=== PATIENT | male | born 1960 | race Caucasian/White ===

== ENCOUNTER 2017-02-19 15:50 | Emergency (ER) | payer MEDICARE, OTHER ==
[2017-02-19 15:59] VITALS: BP 100/57; PULSE 109; BMI 29.8
--- NOTE | 2017-02-19 16:39 | PDOC ---
History of Present Illness - General Chief Complaint: Wound Stated Complaint: RT FOOT WOUND Time Seen by Provider: 02/19/17 16:36 History Source: Patient, Family (Daughter) - History of Present Illness Initial Comments: 02/19/17 16:37 Patient is a 57 year old male with history of DM, ESRD on dialysis, HTN, CHF and PVD presenting with his daughter to the ED at the direction of his pediatrist for evaluation and topical dressing of a lesion on the right foot. Patient has a history of amputations to the right foot with removal of his 2nd and 4th phalanges and the 5th metatarsal. Patient endorses several days of pain to the right foot and noticed a small skin defect. Denies trauma, bleeding and purulent discharge. Denies peripheral neuropathy. Denies fever, chills and SOB. Daughter claims patient has an appointment with his pediatrist , Dr. Brambila, on Friday. Patient completed dialysis this morning with normal labs according to the daughter. Past History - Past Medical History Allergies/Adverse Reactions: Allergies Allergy/AdvReac Type Severity Reaction Status Date / Time No Known Allergies Allergy Verified 05/16/16 10:57 Home Medications: Ambulatory Orders Aspirin [ASA -] 81 mg PO DAILY 01/10/15 Furosemide [Lasix -] 40 mg PO DAILY 01/10/15 Omeprazole [Prilosec (RX)] 20 mg PO DAILY 01/10/15 Simvastatin [Zocor -] 20 mg PO HS 01/10/15 Tamsulosin HCl [Flomax -] 0.8 mg PO DAILY 01/10/15 Tiotropium [place] [Spiriva] 1 inh PO DAILY 01/10/15 Glipizide [Glipizide ER] 5 mg PO BID 06/02/15 Amlodipine Besylate [Norvasc -] 5 mg PO DAILY 01/19/16 Lisinopril 10 mg PO DAILY 01/19/16 Sucroferric Oxyhydroxide [Velphoro] 500 mg PO DAILY 01/19/16 Anemia: Yes Asthma: No Cancer: No Cardiac Disorders: (PVD - recent Angiogram) CVA: No COPD: No CHF: Yes Dementia: No Diabetes: Yes Dialysis: Yes (M-W-F) GI Disorders: No Disorders: (ESRD - HD) HTN: Yes Hypercholesterolemia: Yes Liver Disease: No Seizures: No Thyroid Disease: No - Surgical History Abdominal Surgery: Yes (Left LE angiogram) Appendectomy: No Cardiac Surgery: No Cholecystectomy: No Lung Surgery: No Neurologic Surgery: No Orthopedic Surgery: No - Immunization History Immunization Up to Date: Yes - Psycho/Social/Smoking Cessation Hx Anxiety: No Suicidal Ideation: No Smoking History: Current some day smoker Have you smoked in the past 12 months: No Number of Cigarettes Smoked Daily: 4 If you are a former smoker, when did you quit?: 3 days ago (01/05/16) Information on smoking cessation initiated: No Hx Alcohol Use: No Drug/Substance Use Hx: No Substance Use Type: None Hx Substance Use Treatment: No Review of Systems - Review of Systems Able to Perform ROS?: Yes Is the patient limited Icelandic proficient: Yes Constitutional: No: Chills, Fever Respiratory: No: Shortness of Breath Cardiac (ROS): No: Chest Pain, Syncope ABD/GI: No: Other (Abdominal pain) : No: Dysuria Musculoskeletal: Yes: Other (pain and lesion to right foot without discharge. Denies neuropathy) *Physical Exam - Vital Signs Last Vital Signs Temp Pulse Resp BP Pulse Ox 99.2 F 109 H 20 100/57 95 02/19/17 15:56 02/19/17 15:56 02/19/17 15:56 02/19/17 15:56 02/19/17 15:56 - Physical Exam General Appearance: Yes: Nourished, Disheveled HEENT: positive: EOMI, TAMARA Respiratory/Chest: positive: Lungs Clear, Normal Breath Sounds. negative: Respiratory Distress Cardiovascular: positive: Regular Rhythm, Regular Rate. negative: Edema, JVD, Murmur Comments:: 02/19/17 20:03 Diminished (+1) left PT pulse and absent DP and PT pulses to the right LE. Both LE are warm and appear well perfused without pallor or cyanosis Gastrointestinal/Abdominal: positive: Distended (moderate). negative: Guarding , Rebound, Tenderness Extremity: positive: Other (loss of 2, 4 phalanges of right foot, large area (5 cm x 5 cm) of dark callused skin over the 5th metatarsal with a thin 1 cm central epidermal defect, dry around edges, no erythema or edema, no discharge) . negative: Coldness Integumentary: positive: Normal Color, Dry, Warm Medical Decision Making - Medical Decision Making 57 year old diabetic male with history of amputations to the right foot presenting with a small cutaneous defect and pain to the mid lateral aspect of the right foot. Ddx is most concerning for an infection in the setting of diabetes with with possible osteomyelitis. Plan to get xray, CBC, CMP, Coags, ESR, CRP Conider Blood cultures 02/19/17 16:38 After being seen by both Dr. Rosario and myself the patient declined any additional testing and stated he did not want to stay. I explained to both the patient and his daughter that the risks of leaving included osteomyelitis, sepsis, loss of limb and possible . They both acknowledged their understanding and expressed their desire to leave AMA. They stated that they would go see the patients primary care physician in the morning. Daughter, who is the medical proxy for her father, signed the AMA form and then patient and daughter preceded to leave the ED. *DC/Admit/Observation/Transfer Diagnosis at time of Disposition: Foot ulcer - Discharge Dispostion Disposition: AGAINST MEDICAL ADVICE Condition at time of disposition: Stable - Referrals Referrals: foot surgeon, as needed [Other] - Patient Instructions Additional Instructions: You are leaving against medical advice. You are at risk of developing osteomylitis, sepsis, loss of limb and . Please follow up with a foot surgeon immediately. Return to ED or dial 911 immediately if you develop fever. - Attestations Physician Attestion: 02/19/17 18:46 I, Dr. Florin Gonzlaez, attest that this document has been prepared under my direction and personally reviewed by me in its entirety. I further attest, that it accurately reflects all work, treatment, procedures and medical decision -making performed by me.
[2017-02-19 17:19] VITALS: TEMP 97.7
--- NOTE | 2017-02-19 19:13 | PDOC ---
Attending Attestation - Resident Resident Name: Florin Gonzalez - ED Attending Attestation I have performed the following: I have examined & evaluated the patient, The case was reviewed & discussed with the resident, I agree w/resident's findings & plan, Exceptions are as noted - HPI HPI: 02/19/17 19:06 Patient is a 57-year-old male with history of end-stage renal disease on hemodialysis, multiple toe amputations in the past presents with a cutaneous defect to the lateral aspect of the right foot with surrounding callus for the past several days. Patient denies fevers/chills/nausea/vomiting/pain. - Physicial Exam PE: 02/19/17 19:07 Patient is awake and alert, afebrile, nontoxic appearing. There is a 1 cm linear defects to the lateral aspect of the right midfoot over the base of the fifth metatarsal with surrounding callus. Dorsalis pedis and tibialis posterior not palpable. There is amputation of second and fourth toes. Right foot is warm to touch with a normal cap refill. Popliteal artery is +1 on the right. - Medical Decision Making 02/19/17 19:14 Patient is a 57-year-old male with history of diabetes, end-stage renal disease on hemodialysis presents with a cutaneous defect to the lateral aspect of the right midfoot with surrounding callus. Patient refused any further evaluation and wished to follow-up with his foot surgeon. Patient advised of the risk of osteomyelitis and further lung loss. Patient and his daughter expressed understanding and signed out AMA.
--- NOTE | 2017-02-25 13:35 | EKG ---
Test Reason : Blood Pressure : / mmHG Vent. Rate : 090 BPM Atrial Rate : 090 BPM P-R Int : 184 ms QRS Dur : 080 ms QT Int : 338 ms P-R-T Axes : 063 060 041 degrees QTc Int : 413 ms NORMAL SINUS RHYTHM POSSIBLE LEFT ATRIAL ENLARGEMENT NONSPECIFIC ST-T ABNORMALITIES IN II III aVF V4-V6 ABNORMAL ECG WHEN COMPARED WITH ECG OF 19-JAN-2016 16:15, REPEAT EKG IF CLINICALLY INDICATED Confirmed by RAFAEL ARCE MD ([id number]) on 02/25/2017 1:35:27 PM Referred By: Confirmed By:RAFAEL ARCE MD
== END 2017-02-19 18:40 | disposition left against medical advice (07) ==
LOC: JER 15:50
DX: E11.621 Type 2 diabetes mellitus with foot ulcer (principal); L97.411 Non-pressure chronic ulcer of right heel and midfoot limited to breakdown of skin; Z79.84 Long term (current) use of oral hypoglycemic drugs; I13.2 Hypertensive heart and chronic kidney disease with heart failure and with stage 5 chronic kidney disease, or end stage renal disease; E11.22 Type 2 diabetes mellitus with diabetic chronic kidney disease; N18.6 End stage renal disease; I50.9 Heart failure, unspecified; N17.8 Other acute kidney failure; Z99.2 Dependence on renal dialysis; E78.00 Pure hypercholesterolemia, unspecified; Z89.421 Acquired absence of other right toe(s)
CPT/HCPCS: 93005; 93010; 99281-25

== ENCOUNTER 2020-02-27 01:22 | Inpatient (IN) | payer OTHER ==
[2020-02-27 01:38] VITALS: BMI 29.0
[2020-02-27] MEDS ORDERED: ACETAMINOPHEN 1000 MG/100 ML VIAL (NON FORMULARY) IVPB ONE (02:40)
[2020-02-27] MEDS ORDERED: AZITHROMYCIN IVPB 500 MG in DEXTROSE 5%-WATER - 250 ML IVPB ONE (02:40)
[2020-02-27] MEDS ORDERED: DEXAMETHASONE SOD PHOSPHATE 10 MG/1 ML VIAL IVPUSH ONE (02:40)
--- NOTE | 2020-02-27 02:40 | PDOC ---
Attending Attestation - Resident Resident Name: CaneloDenizorquideaRamirovalencia - ED Attending Attestation I have performed the following: I have examined & evaluated the patient, The case was reviewed & discussed with the resident, I agree w/resident's findings & plan - HPI HPI: 02/27/20 20:51 60-year-old male hx of IDDM, htn, right BKA and renal disease with hx of HD, s/p kidney transplant. Reports the last time he had hemodialysis was 2 years ago. Pt presenting with 1 day of fever, pt reports temp at home was 104. Pt has not had any cough, shortness of breath, chest pain, wheezing, abdominal pain, burning with urination, hematuria, leg swelling, nausea, vomiting. endorses fever and chills. - Physicial Exam PE: 02/27/20 20:51 Agree with resident exam. Pt has a fever. + slight SOB Abd generalized diffuse mild tenderness No flank pain - Medical Decision Making 02/27/20 03:32 Pt treated with ceftriaxone for UTI; she received zpak and decadron for covid treatment, as he comes with cough cold and fever and weakness. 02/27/20 20:52 CXR - questionable infiltrates. Pt received abx either way. Stable for admission to med surg. Heart Score/ECG Review - ECG Intrepretation Rhythm: Regular Rhythm - [place]: Normal - P and MO Prominent R with upright T in V1 (true posterior ME): No - QRS Poor R Wave Progression: No Q Wave Present: No - ST and T Early Repolarization: No Non Specific ST-T Wave changes: No Flattened T Waves: No Prolonged Q-T Interval: No - ECG Impressions Normal ECG: No Non-specific ST Elevation: No Ischemic Changes: Yes (LVH with strain pattern) Bradycardia: No Discharge - Discharge Information Problems reviewed: Yes Clinical Impression/Diagnosis: Pneumonia, UTI (urinary tract infection) Condition: Improved Disposition: TRANSFER ACUTE CARE/OTHER HOSP - Follow up/Referral - Patient Discharge Instructions - Post Discharge Activity
[2020-02-27] MEDS ORDERED: DEXAMETHASONE SOD PHOSPHATE 10 MG/1 ML VIAL ONE (02:44)
[2020-02-27] MEDS ORDERED: ACETAMINOPHEN INJECTION 100 ML IVPB ONE (02:45)
[2020-02-27] MEDS ORDERED: AZITHROMYCIN IVPB 500 MG/250 ML BAG IVPB ONE (02:45)
[2020-02-27 03:03] LABS: BASO % 0.2 % (0-2.0); EOS % 0.1 % (0-4.5); HEMATOCRIT 40.3 % (35.4-49); HEMOGLOBIN 13.5 GM/dL (11.7-16.9); LYMPH % 7.7 % (8-40); MCH 32.1 pg (25.7-33.7); MCHC 33.5 g/dl (32.0-35.9); MEAN CELL VOLUME 95.7 fl (80-96); MEAN PLT VOLUME 9.1 fl (7.5-11.1); MONO % 2.5 % (3.8-10.2); NEUT % 89.5 % (42.8-82.8); PLATELET COUNT 234 K/MM3 (134-434); RBC 4.21 M/mm3 (4.00-5.60); RDW 14.7 % (11.9-15.9); WHITE BLOOD COUNT 9.4 K/mm3 (4.0-10.0)
[2020-02-27 03:04] LABS: EPI CELLS >36 /uL (0-25.1); HYALINE CASTS 4 /uL (0-3.1); URINE APPEARANCE CLEAR; URINE BACTERIA 205 /uL (0-1359); URINE BILIRUBIN NEGATIVE (NEGATIVE); URINE COLOR YELLOW; URINE GLUCOSE (UA) 2+ (NEGATIVE); URINE KETONE NEGATIVE (NEGATIVE); URINE LEUK ESTERASE 1+ (NEGATIVE); URINE NITRITE NEGATIVE (NEGATIVE); URINE PROTEIN 2+ (NEGATIVE); URINE RBC 5 /uL (0-23.9); URINE UROBILINOGEN 0.2 mg/dL (0.2-1.0); URINE WBC 64 /uL (0-25.8)
--- NOTE | 2020-02-27 03:11 | PDOC ---
History of Present Illness - General Chief Complaint: Cold Symptoms Stated Complaint: FEVER Time Seen by Provider: 02/27/20 03:10 - History of Present Illness Initial Comments: 02/27/20 03:17 60-year-old male hx of IDDM, htn, right BKA and renal disease with hx of HD, s/p kidney transplant. Reports the last time he had hemodialysis was 2 years ago. Pt presenting with 1 day of fever, pt reports temp at home was 104. Pt has not had any cough, shortness of breath, chest pain, wheezing, abdominal pain, burning with urination, hematuria, leg swelling, nausea, vomiting. endorses fever and chills. PMHx: as noted above ROS: as noted Allergies: NKDA ROS: GENERAL/CONSTITUTIONAL: No fever or chills. No weakness. HEAD, EYES, EARS, NOSE AND THROAT: No change in vision. No ear pain or discharge. No sore throat. CARDIOVASCULAR: No chest pain or shortness of breath RESPIRATORY: No cough, wheezing, or hemoptysis. GASTROINTESTINAL: No nausea, vomiting, diarrhea or constipation. GENITOURINARY: No dysuria, frequency, or change in urination. MUSCULOSKELETAL: No joint or muscle swelling or pain. No neck or back pain. SKIN: No rash NEUROLOGIC: No headache, vertigo, loss of consciousness, or change in strength/sensation. ENDOCRINE: No increased thirst. No abnormal weight change HEMATOLOGIC/LYMPHATIC: No anemia, easy bleeding, or history of blood clots. ALLERGIC/IMMUNOLOGIC: No hives or skin allergy. PE: GENERAL: Awake, alert, and fully oriented,chills. HEAD: No signs of trauma, normocephalic, atraumatic EYES: PERRLA, EOMI, sclera anicteric, conjunctiva clear ENT: Auricles normal inspection, hearing grossly normal, nares patent, oropharynx clear without exudates. Moist mucosa NECK: Normal ROM, supple, no lymphadenopathy, JVD, or masses LUNGS: No distress, speaks full sentences, clear to auscultation bilaterally HEART: Regular rate and rhythm, normal S1 and S2, no murmurs, rubs or gallops, peripheral pulses normal and equal bilaterally. ABDOMEN: Soft,RLQ ttp, with bulge concerning for mass. EXTREMITIES :right BKA. no edema or left extremity NEUROLOGICAL: Cranial nerves II through XII grossly intact. Normal speech, no focal sensorimotor deficits SKIN: Warm, Dry, normal turgor, no rashes or lesions noted 02/27/20 03:49 02/27/20 03:55 02/27/20 20:00 Past History - Medical History Allergies/Adverse Reactions: Allergies Allergy/AdvReac Type Severity Reaction Status Date / Time No Known Allergies Allergy Verified 02/27/20 01:25 Home Medications: Ambulatory Orders Aspirin [ASA -] 81 mg PO DAILY 01/10/15 Simvastatin [Zocor -] 20 mg PO HS 01/10/15 Tamsulosin HCl [Flomax -] 0.8 mg PO DAILY 01/10/15 Tiotropium [place] [Spiriva] 1 inh PO DAILY 01/10/15 Amlodipine Besylate [Norvasc -] 5 mg PO DAILY 01/19/16 Lisinopril 10 mg PO DAILY 01/19/16 Sucroferric Oxyhydroxide [Velphoro] 500 mg PO DAILY 01/19/16 Insulin (Levemir) [Levemir Vial] 20 units SQ HS 02/27/20 Mycophenolate Mofetil [Cellcept] 250 mg PO BID 02/27/20 Prednisone 5 mg PO DAILY 02/27/20 Tacrolimus 1 mg PO DAILY 02/27/20 Tacrolimus Anhydrous [Prograf] 0.5 mg PO HS 02/27/20 Anemia: Yes Asthma: No Cancer: No Cardiac Disorders: (PVD - recent Angiogram) CVA: No COPD: No CHF: Yes Dementia: No Diabetes: Yes Dialysis: Yes (M-W-F) GI Disorders: No Disorders: (ESRD - HD) HTN: Yes Hypercholesterolemia: Yes Liver Disease: No Seizures: No Thyroid Disease: No - Surgical History Abdominal Surgery: Yes (Left LE angiogram) Appendectomy: No Cardiac Surgery: No Cholecystectomy: No Lung Surgery: No Neurologic Surgery: No Orthopedic Surgery: No - Immunization History Immunization Up to Date: Yes - Psycho-Social/Smoking History Smoking History: Unknown if ever smoked Have you smoked in the past 12 months: No Number of Cigarettes Smoked Daily: 4 If you are a former smoker, when did you quit?: 3 days ago (01/05/16) - Substance Abuse Hx (Audit-C & DAST Scrn) How often the patient has a drink containing alcohol: Monthly or less Score: In Men: 4 or > Positive; In Women: 3 or > Positive: 1 Screen Result (Pos requires Nsg. Audit-10AR): Negative In the last yr the pt used illegal drug/Rx for NonMed reason: No Score: Yes response is considered Positive: 0 Screen Result (Positive result requires Nsg. DAST-10): Negative *Physical Exam - Vital Signs Last Vital Signs Temp Pulse Resp BP Pulse Ox 102.3 F H 101 H 19 163/69 97 02/27/20 01:31 02/27/20 01:31 02/27/20 01:31 02/27/20 01:31 02/27/20 01:31 ED Treatment Course - LABORATORY CBC & Chemistry Diagram: 02/27/20 02:16 02/27/20 02:16 - ADDITIONAL ORDERS Additional order review: Laboratory Results 02/27/20 02:47 Urine Color Yellow Urine Appearance Clear Urine pH 6.0 Ur Specific [place] 1.016 Urine Protein 2+ H Urine Glucose (UA) 2+ H Urine Ketones Negative Urine Blood Trace Urine Nitrite Negative Urine Bilirubin Negative Urine Urobilinogen 0.2 Ur Leukocyte Esterase 1+ H Urine WBC (Auto) 64 Urine RBC (Auto) 5 Urine Casts (Auto) 4 U Epithel Cells (Auto) >36 Urine Bacteria (Auto) 205 - Medications Given in the ED: ED Medications Discontinued Medications Generic Name Dose Route Start Last Admin Trade Name Napoleon PRN Reason Stop Dose Admin Acetaminophen 1,000 mg 02/27/20 02:40 02/27/20 03:00 Ofirmev Injection - IVPB 02/27/20 02:41 1,000 mg ONCE ONE Administration Dexamethasone Sodium Phosphate 10 mg 02/27/20 02:40 02/27/20 03:00 Decadron Injection - IVPUSH 02/27/20 02:41 10 mg ONCE ONE Administration Medical Decision Making - Medical Decision Making 02/27/20 03:53 60-year-old male hx of IDDM, htn, right BKA and renal disease with hx of HD s/p kidney transplant. Reports his last time he had hemodialysis was 2 years ago. Pt presenting with 1 day of fever, 02/27/20 03:54 ddx: covid, pneumonia, uti, labs, ekg, cxr, ct abd and pelvis, meds: fever, fluids, abx 02/27/20 03:56 02/27/20 04:20 ekg: NSR, t wave inversions in v4-v6 changed from ekg in 2017 LVH, no ST elevations. trop ordered. 02/27/20 06:44 ct abdomen and pelvis w/o contrast. IMPRESSION: Possible right middle and lower lobe lobular pneumonia. Small bilateral infarcting renal stones. Right lower quadrant transplanted kidney. Mild prostate enlargement. Bladder distention is likely physiologic 02/27/20 06:49 microblog for admission sent. Discharge - Discharge Information Problems reviewed: Yes Clinical Impression/Diagnosis: Pneumonia, UTI (urinary tract infection) Condition: Improved Disposition: TRANSFER ACUTE CARE/OTHER HOSP - Follow up/Referral - Patient Discharge Instructions - Post Discharge Activity
[2020-02-27] MEDS ORDERED: CEFTRIAXONE 1 GM in DEXTROSE 5%-WATER - 50 ML IVPB ONE (03:18)
[2020-02-27 03:26] LABS: ALK PHOS 59 U/L (45-117); ANION GAP 11 MMOL/L (8-16); BILIRUBIN,TOTAL 0.4 mg/dL (0.2-1); BLOOD UREA NITROGEN 19.7 mg/dL (7-18); CALCIUM 9.8 mg/dL (8.5-10.1); CHLORIDE 102 mmol/L (98-107); CO2 23 mmol/L (21-32); CREATININE 1.4 mg/dL (0.55-1.3); GLUCOSE,RANDOM 200 mg/dL (74-106); POTASSIUM 3.9 mmol/L (3.5-5.1); SGOT/AST 18 U/L (15-37); SGPT/ALT 27 U/L (13-61); SODIUM 136 mmol/L (136-145); TOT PROT 7.5 g/dl (6.4-8.2)
[2020-02-27] MEDS ORDERED: CEFTRIAXONE 1 GM/50 ML BAG ONE (03:28)
[2020-02-27 03:42] LABS: ALBUMIN 3.9 g/dl (3.4-5.0)
[2020-02-27] MEDS ORDERED: SODIUM CHLORIDE 0.9% 500 ML INFUS.BAG IV ONE (04:21)
[2020-02-27] MEDS ORDERED: SODIUM CHLORIDE 1,000 ML IV STA (07:46)
--- NOTE | 2020-02-27 08:11 | PDOC ---
*Physical Exam - Vital Signs Last Vital Signs Temp Pulse Resp BP Pulse Ox 100.6 F H 88 16 141/70 98 02/27/20 06:09 02/27/20 06:09 02/27/20 06:09 02/27/20 06:09 02/27/20 06:09 - Physical Exam General Appearance: Yes: Appropriately Dressed. No: Apparent Distress HEENT: positive: EOMI, Normal Voice Neck: negative: Tender, Rigid Respiratory/Chest: positive: Lungs Clear, Normal Breath Sounds. negative: Chest Tender, Respiratory Distress Cardiovascular: positive: Regular Rhythm, Regular Rate, S1, S2 Gastrointestinal/Abdominal: positive: Flat, Soft. negative: Tender Extremity: positive: Normal Inspection, Normal Range of Motion, Other (R. below knee amputation). negative: Pedal Edema, Swelling Integumentary: positive: Normal Color, Dry, Warm, Other (Diaphoretic) Neurologic: positive: Fully Oriented, Alert, Normal Mood/Affect ED Treatment Course - LABORATORY CBC & Chemistry Diagram: 02/27/20 02:16 02/27/20 02:16 - ADDITIONAL ORDERS Additional order review: Laboratory Results 02/27/20 02/27/20 02/27/20 06:30 06:30 03:00 D-Dimer Sodium Potassium Chloride Carbon Dioxide Anion Gap BUN Creatinine Est GFR (CKD-EPI)AfAm Est GFR (CKD-EPI)NonAf Random Glucose Lactic Acid 2.8 H* 2.7 H* Calcium Ferritin Total Bilirubin AST ALT Alkaline Phosphatase Troponin I < 0.02 C-Reactive Protein Total Protein Albumin Urine Color Urine Appearance Urine pH Ur Specific [place] Urine Protein Urine Glucose (UA) Urine Ketones Urine Blood Urine Nitrite Urine Bilirubin Urine Urobilinogen Ur Leukocyte Esterase Urine WBC (Auto) Urine RBC (Auto) Urine Casts (Auto) U Epithel Cells (Auto) Urine Bacteria (Auto) 02/27/20 02/27/20 02/27/20 02:47 02:16 02:16 D-Dimer 1415 H Sodium 136 Potassium 3.9 Chloride 102 Carbon Dioxide 23 Anion Gap 11 BUN 19.7 H Creatinine 1.4 H Est GFR (CKD-EPI)AfAm 61.97 Est GFR (CKD-EPI)NonAf 53.47 Random Glucose 200 H Lactic Acid Calcium 9.8 Ferritin 507.9 H Total Bilirubin 0.4 AST 18 ALT 27 Alkaline Phosphatase 59 Troponin I C-Reactive Protein 1.2 H Total Protein 7.5 Albumin 3.9 Urine Color Yellow Urine Appearance Clear Urine pH 6.0 Ur Specific [place] 1.016 Urine Protein 2+ H Urine Glucose (UA) 2+ H Urine Ketones Negative Urine Blood Trace Urine Nitrite Negative Urine Bilirubin Negative Urine Urobilinogen 0.2 Ur Leukocyte Esterase 1+ H Urine WBC (Auto) 64 Urine RBC (Auto) 5 Urine Casts (Auto) 4 U Epithel Cells (Auto) >36 Urine Bacteria (Auto) 205 02/27/20 02:16 RBC 4.21 MCV 95.7 MCHC 33.5 RDW 14.7 MPV 9.1 D Neutrophils % 89.5 H D Lymphocytes % 7.7 L D Monocytes % 2.5 L Eosinophils % 0.1 D Basophils % 0.2 - Medications Given in the ED: ED Medications Discontinued Medications Generic Name Dose Route Start Last Admin Trade Name Freq PRN Reason Stop Dose Admin Acetaminophen 1,000 mg 02/27/20 02:40 02/27/20 03:00 Ofirmev Injection - IVPB 02/27/20 02:41 1,000 mg ONCE ONE Administration Dexamethasone Sodium Phosphate 10 mg 02/27/20 02:40 02/27/20 03:00 Decadron Injection - IVPUSH 02/27/20 02:41 10 mg ONCE ONE Administration Azithromycin 500 mg/ Dextrose 250 mls @ 250 mls/hr 02/27/20 02:40 02/27/20 03:00 IVPB 02/27/20 03:39 250 mls/hr ONCE ONE Administration Ceftriaxone Sodium 1 gm/ 50 mls @ 100 mls/hr 02/27/20 03:18 02/27/20 03:46 Dextrose IVPB 02/27/20 03:47 100 mls/hr ONCE ONE Administration Sodium Chloride 1,000 ml 02/27/20 04:21 02/27/20 04:39 Normal Saline - IV 02/27/20 04:22 1,000 ml ONCE ONE Administration Medical Decision Making - Medical Decision Making 60 yo male with PMH of DM, CKD, R. renal transplant presents with fever. Pt found to have a lobar pneumonia and UTI. LA 2.7, repeat LA 2.8 Troponin negative Treated with Azithromycin/Ceftriaxone Treated with Dexamethasone 2L Fluid Blood culture pending Urine culture pending Pt admitted 02/27/20 15:14 Discharge - Discharge Information Problems reviewed: Yes Clinical Impression/Diagnosis: Pneumonia, UTI (urinary tract infection) - Follow up/Referral - Patient Discharge Instructions - Post Discharge Activity
[2020-02-27 08:33] LABS: YEAST NON SEEN (NEGATIVE)
[2020-02-27] MEDS ORDERED: SODIUM CHLORIDE 1,000 ML IV SCH (09:45)
--- NOTE | 2020-02-27 11:45 | HP ---
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 This is a 60 year old male with PMH of DM(L BKA), ESRD (Renal transplant 3Y ago), and HTN. He presented to the ER with complaints of a fever last night around 7 PM. According to the patient, oral temp recorded at home was 104. He states that he was in bed at the time, and felt feverish. After he checked his temperature, his daughter called EMS and he was brought to the [facility] ER. He endorses associated throat irritation for the past 24 hours, one episode of diarrhea around the same time, and polyuria with 3 episodes of clear urine yesterday. Pt states that he has one episode of diarrhea every time he take Trulicity (takes it once a week), and he took Trulicity shortly before the episode of diarrhea yesterday. He denies any chills, confusion, SOB, chest pain, abdominal pain, constipation, or dysuria. He has a history of ESRD, was started on HD 5 years ago and underwent a L renal transplant at [facility] 3 years ago. Follows up at [facility] as well. Leopoldo ntly on Prednisone 5mg, Mycophenolate Mofetil, and Tacrolimus. Tacrolimus levels were found to be elevated last week and dose was reduced from 1mg BID to 1mg AM and 0.5mg PM. He also had a Left BKA 1 year ago. He lives with his daughter, and quit smoking 5 years ago. In the ER, he was found to have questionable Rt middle/lower lobe infiltrate, Lactic Acid 2.7, and was given Ceftriaxone/Azithro, 10mg Dexamethasone and 2L N/S. ER course was notable for: (1) CT AP: Questionable Rt middle/lower lobe infiltrate (2) Ceftriaxone/Azithro (3) Lactic Acid 2.7, 2.8, 2L of N/S given Recent Travel: denies PAST MEDICAL HISTORY: See HPI PAST SURGICAL HISTORY: See HPI Social History: Smoking: Quit 5 years ago Alcohol: Infrequent, glass of wine a few times a year Drugs: Denies Allergies No Known Allergies Allergy (Verified 02/27/20 01:25) HOME MEDICATIONS: Home Medications Medication Instructions Recorded Aspirin [ASA -] 81 mg PO DAILY 01/10/15 Furosemide [Lasix -] 40 mg PO DAILY 01/10/15 Omeprazole [Prilosec (RX)] 20 mg PO DAILY 01/10/15 Simvastatin [Zocor -] 20 mg PO HS 01/10/15 Tamsulosin HCl [Flomax -] 0.8 mg PO DAILY 01/10/15 Tiotropium [place] [Spiriva] 1 inh PO DAILY 01/10/15 Glipizide [Glipizide ER] 5 mg PO BID 06/02/15 Amlodipine Besylate [Norvasc -] 5 mg PO DAILY 01/19/16 Lisinopril 10 mg PO DAILY 01/19/16 Sucroferric Oxyhydroxide [Velphoro] 500 mg PO DAILY 01/19/16 REVIEW OF SYSTEMS CONSTITUTIONAL: Absent: fever, chills, diaphoresis, generalized weakness, malaise, loss of appetite, weight change HEENT: Absent: rhinorrhea, nasal congestion, throat pain, throat swelling, difficulty swallowing, mouth swelling, ear pain, eye pain, visual changes CARDIOVASCULAR: Absent: chest pain, syncope, palpitations, irregular heart rate, lightheadedness, peripheral edema RESPIRATORY: Absent: cough, shortness of breath, dyspnea with exertion, orthopnea, wheezing, stridor, hemoptysis GASTROINTESTINAL: Absent: abdominal pain, abdominal distension, nausea, vomiting, diarrhea, constipation, melena, hematochezia GENITOURINARY: Absent: dysuria, frequency, urgency, hesitancy, hematuria, flank pain, genital pain MUSCULOSKELETAL: Absent: myalgia, arthralgia, joint swelling, back pain, neck pain SKIN: Absent: rash, itching, pallor HEMATOLOGIC/IMMUNOLOGIC: Absent: easy bleeding, easy bruising, lymphadenopathy, frequent infections ENDOCRINE: Absent: unexplained weight gain, unexplained weight loss, heat intolerance, cold intolerance NEUROLOGIC: Absent: headache, focal weakness or paresthesias, dizziness, unsteady gait, seizure, mental status changes, bladder or bowel incontinence PSYCHIATRIC: Absent: anxiety, depression, suicidal or homicidal ideation, hallucinations. PHYSICAL EXAMINATION Vital Signs - 24 hr 02/27/20 02/27/20 01:31 06:09 Temperature 102.3 F H 100.6 F H Pulse Rate 101 H Pulse Rate [ 88 Left] Respiratory 19 16 Rate Blood Pressure 163/69 Blood Pressure 141/70 [Left Arm] O2 Sat by Pulse 97 98 Oximetry (%) GENERAL: Awake, alert, and fully oriented, in no acute distress. HEAD: Normal with no signs of trauma. EYES: Pupils equal, round and reactive to light, extraocular movements intact, sclera anicteric, conjunctiva clear. No lid lag. EARS, NOSE, THROAT: Ears normal, nares patent, oropharynx clear without exudates. Moist mucous membranes. NECK: Normal range of motion, supple without lymphadenopathy, JVD, or masses. LUNGS: Breath sounds equal, clear to auscultation bilaterally. No wheezes, and no crackles. No accessory muscle use. HEART: Regular rate and rhythm, normal S1 and S2 without murmur, rub or gallop. ABDOMEN: Soft, nontender, not distended, normoactive bowel sounds, no guarding, no rebound, no masses. No hepatomegaly or splenomegaly. MUSCULOSKELETAL: Normal range of motion at all joints. No bony deformities or tenderness. No CVA tenderness. UPPER EXTREMITIES: 2+ pulses, warm, well-perfused. No cyanosis. No clubbing. No peripheral edema. LOWER EXTREMITIES: Right BKA, pulses intact on the left with no edema NEUROLOGICAL: Cranial nerves II-XII intact. Normal speech. Normal gait. PSYCHIATRIC: Cooperative. Good eye contact. Appropriate mood and affect. SKIN: Warm, dry, normal turgor, no rashes or lesions noted, normal capillary refill. Laboratory Results - last 24 hr 02/27/20 02/27/20 02/27/20 02:16 02:16 02:16 WBC 9.4 RBC 4.21 Hgb 13.5 Hct 40.3 MCV 95.7 MCH 32.1 MCHC 33.5 RDW 14.7 Plt Count 234 D MPV 9.1 D Absolute Neuts (auto) 8.4 H Neutrophils % 89.5 H D Lymphocytes % 7.7 L D Monocytes % 2.5 L Eosinophils % 0.1 D Basophils % 0.2 Nucleated RBC % 0 D-Dimer 1415 H Sodium 136 Potassium 3.9 Chloride 102 Carbon Dioxide 23 Anion Gap 11 BUN 19.7 H Creatinine 1.4 H Est GFR (CKD-EPI)AfAm 61.97 Est GFR (CKD-EPI)NonAf 53.47 Random Glucose 200 H Lactic Acid Calcium 9.8 Ferritin 507.9 H Total Bilirubin 0.4 AST 18 ALT 27 Alkaline Phosphatase 59 Troponin I C-Reactive Protein 1.2 H Total Protein 7.5 Albumin 3.9 Urine Color Urine Appearance Urine pH Ur Specific [place] Urine Protein Urine Glucose (UA) Urine Ketones Urine Blood Urine Nitrite Urine Bilirubin Urine Urobilinogen Ur Leukocyte Esterase Urine WBC (Auto) Urine RBC (Auto) Urine Casts (Auto) U Epithel Cells (Auto) Urine Bacteria (Auto) Urine Yeast (Auto) 02/27/20 02/27/20 02/27/20 02:47 03:00 06:30 WBC RBC Hgb Hct MCV MCH MCHC RDW Plt Count MPV Absolute Neuts (auto) Neutrophils % Lymphocytes % Monocytes % Eosinophils % Basophils % Nucleated RBC % D-Dimer Sodium Potassium Chloride Carbon Dioxide Anion Gap BUN Creatinine Est GFR (CKD-EPI)AfAm Est GFR (CKD-EPI)NonAf Random Glucose Lactic Acid 2.7 H* Calcium Ferritin Total Bilirubin AST ALT Alkaline Phosphatase Troponin I < 0.02 C-Reactive Protein Total Protein Albumin Urine Color Yellow Urine Appearance Clear Urine pH 6.0 Ur Specific [place] 1.016 Urine Protein 2+ H Urine Glucose (UA) 2+ H Urine Ketones Negative Urine Blood Trace Urine Nitrite Negative Urine Bilirubin Negative Urine Urobilinogen 0.2 Ur Leukocyte Esterase 1+ H Urine WBC (Auto) 64 Urine RBC (Auto) 5 Urine Casts (Auto) 4 U Epithel Cells (Auto) >36 Urine Bacteria (Auto) 205 Urine Yeast (Auto) Non seen 02/27/20 06:30 WBC RBC Hgb Hct MCV MCH MCHC RDW Plt Count MPV Absolute Neuts (auto) Neutrophils % Lymphocytes % Monocytes % Eosinophils % Basophils % Nucleated RBC % D-Dimer Sodium Potassium Chloride Carbon Dioxide Anion Gap BUN Creatinine Est GFR (CKD-EPI)AfAm Est GFR (CKD-EPI)NonAf Random Glucose Lactic Acid 2.8 H* Calcium Ferritin Total Bilirubin AST ALT Alkaline Phosphatase Troponin I C-Reactive Protein Total Protein Albumin Urine Color Urine Appearance Urine pH Ur Specific [place] Urine Protein Urine Glucose (UA) Urine Ketones Urine Blood Urine Nitrite Urine Bilirubin Urine Urobilinogen Ur Leukocyte Esterase Urine WBC (Auto) Urine RBC (Auto) Urine Casts (Auto) U Epithel Cells (Auto) Urine Bacteria (Auto) Urine Yeast (Auto) ASSESSMENT/PLAN: 60M with PMH of DM(L BKA), ESRD (Renal transplant 3Y ago), and HTN, presented to the ER with complaints of a fever with home recorded temp 104 last night around 7 PM, found to have questionable RLL and RML infiltrate on CTAP, admitted for suspected PNA. #Sepsis - Meets SIRS: Fever 102.9 in ER with HR 101 - CT AP wo contrast: Questionable Rt middle/lower lobe infiltrate - UA: 2+ protein, 2+ Glucose, LE 1+ (WBC 64, Bacteria 205, Epi 36) - Source respiratory (PNA, COVID?) vs urine - Blood, Urine, Sputum cx, Urine for Legionella, COVID PCR sent - Started on Ceftriaxone and Azithromycin for CAP, Ceftriaxone will also cover possible UTI - CRP 1.2, dDimer 1415, may be 2/2 COVID - Lactic Acid 2.7, 2.8, currently getting 3rd Liter of N/S @ 83 - Transfer to [facility], Dr. Duarte, for further management in this transplant patient with sepsis and undetermined source #JUDY - No recent records for baseline, Hx of renal transplant - Nephro consult for JUDY in transplant recipient - Continue hydrating N/S @ 83 - Will hold home Lasix for now while hydrating #Nephrolithiasis - CT AP wo contrast: - No current CVA tenderness, hydronephrosis, november F/U outpatient #Hx of DM - BGM, ISS - A1c in AM #Hx of HTN - Continue home Norvasc 5mg, hold Lisinopril 10mg due to suspected JUDY #FEN - N/S @ 83 - DM diet #Prophylaxis - Lovenox #Dispo - Pt. transferred to [facility] due to history of renal transplant, Dr. Duarte accepting physician ATTENDING PHYSICIAN STATEMENT I saw and evaluated the patient. I reviewed the resident's note and discussed the case with the resident. I agree with the resident's findings and plan as documented. SUBJECTIVE: OBJECTIVE: ASSESSMENT AND PLAN:
[2020-02-27] MEDS ORDERED: ACETAMINOPHEN 325 MG TABLET (FP) PO PRN (12:41)
[2020-02-27] MEDS ORDERED: amLODIPine BESYLATE 5 MG TABLET (FP) PO SCH (13:00)
[2020-02-27] MEDS ORDERED: HEPARIN NA (PORCINE) 5,000 UNITS/ML 1ML VIAL SQ SCH (14:00)
--- NOTE | 2020-02-27 14:02 | PN ---
Teaching Attending Note Name of Resident: Alok Kulkarni ATTENDING PHYSICIAN STATEMENT I saw and evaluated the patient. I reviewed the resident's note and discussed the case with the resident. I agree with the resident's findings and plan as documented. SUBJECTIVE: 60yo M with h/o L renal transplant ([facility]; 3 years prior) on immunosuppression (tacrolimus, prednisone, mycophenolate), Type 2 DM s/p L BKA, HTN who originally presented to the ER this AM due to high fever of 104*F. Patient stated that he had his fever start around 7 pm and continued to increase throughout the night. Patient's daughter called EMS to seek medical attention. Patient endorses having polyuria throughout yesterday and one episode of diarrhea. He does endorse some odynophagia at that time. Denies any rigors, chills, shortness of breath, CP, palpitations, sick contacts. Patient notes his immunosuppression regimen was changed by his [facility] clinic due to his Tacrolimus levels being elevated. Of note patient was on HD for about 2 years when he received his transplant without any signs of rejection. OBJECTIVE: Gen: NAD, awake, alert HEENT: Nc/AT, NAMRATA, dry mucosa, LUNG: CTA b/l no wheezes no rales CARD: Tachycardic with regular rhythm, no murmurs ABD: Soft, nondistended, hypoactive BS, suprapubic prominence, no CVA tenderness. No bruits, TTP or skin changes overlying pelvic transplanted kidney. EXT: No edema, 2+ distal pulses. CBC, BMP 02/27/20 02:16 02/27/20 02:16 ASSESSMENT AND PLAN: Sepsis 2/2 to likely urinary source History of Renal transplant Lactic acidosis Type 2 DM History HTN Given patient's likely urinary source of sepsis with renal transplant and active changes to immunosuppression regimen, patient would benefit from transferring back to transplant center at [facility]. Transfer center contacted and accepted by [facility] transplant team. Patient aware. Transport en route at time of note. COVID PCR pending
[2020-02-27] MEDS ORDERED: HEPARIN NA (PORCINE) 5,000 UNITS/ML 1ML VIAL ONE (14:57)
[2020-02-27] MEDS ORDERED: amLODIPine BESYLATE 5 MG TABLET (FP) ONE (14:57)
[2020-02-27] MEDS ORDERED: Insulin (LOG) Aspart 100 UNITS/ML VIAL SQ ONE (15:59)
[2020-02-27 16:50] VITALS: BP 165/70; PULSE 86; TEMP 98
--- NOTE | 2020-02-27 18:28 | DS ---
Physical Exam: SUBJECTIVE: Patient seen and examined at the bedside, in no acute distress. OBJECTIVE: Vital Signs Period Temp Pulse Resp BP Sys/Leal Pulse Ox Last 24 Hr 97.9 F-102.3 F 82-101 16-20 141-165/69-72 97-100 PHYSICAL EXAM GENERAL: Awake, alert, and fully oriented, in no acute distress. HEAD: Normal with no signs of trauma. EYES: Pupils equal, round and reactive to light, extraocular movements intact, sclera anicteric, conjunctiva clear. No lid lag. EARS, NOSE, THROAT: Ears normal, nares patent, oropharynx clear without exudates. Moist mucous membranes. NECK: Normal range of motion, supple without lymphadenopathy, JVD, or masses. LUNGS: Breath sounds equal, clear to auscultation bilaterally. No wheezes, and no crackles. No accessory muscle use. HEART: Regular rate and rhythm, normal S1 and S2 without murmur, rub or gallop. ABDOMEN: Soft, nontender, not distended, normoactive bowel sounds, no guarding, no rebound, no masses. No hepatomegaly or splenomegaly. MUSCULOSKELETAL: Normal range of motion at all joints. No bony deformities or tenderness. No CVA tenderness. UPPER EXTREMITIES: 2+ pulses, warm, well-perfused. No cyanosis. No clubbing. No peripheral edema. LOWER EXTREMITIES: Right BKA, pulses intact on the left with no edema NEUROLOGICAL: Cranial nerves II-XII intact. Normal speech. Normal gait. PSYCHIATRIC: Cooperative. Good eye contact. Appropriate mood and affect. SKIN: Warm, dry, normal turgor, no rashes or lesions noted, normal capillary refill. LABS Laboratory Results - last 24 hr 02/27/20 02/27/20 02/27/20 02:16 02:16 02:16 WBC 9.4 RBC 4.21 Hgb 13.5 Hct 40.3 MCV 95.7 MCH 32.1 MCHC 33.5 RDW 14.7 Plt Count 234 D MPV 9.1 D Absolute Neuts (auto) 8.4 H Neutrophils % 89.5 H D Lymphocytes % 7.7 L D Monocytes % 2.5 L Eosinophils % 0.1 D Basophils % 0.2 Nucleated RBC % 0 D-Dimer 1415 H Sodium 136 Potassium 3.9 Chloride 102 Carbon Dioxide 23 Anion Gap 11 BUN 19.7 H Creatinine 1.4 H Est GFR (CKD-EPI)AfAm 61.97 Est GFR (CKD-EPI)NonAf 53.47 Random Glucose 200 H Lactic Acid Calcium 9.8 Ferritin 507.9 H Total Bilirubin 0.4 AST 18 ALT 27 Alkaline Phosphatase 59 Troponin I < 0.02 C-Reactive Protein 1.2 H Total Protein 7.5 Albumin 3.9 Urine Color Urine Appearance Urine pH Ur Specific [place] Urine Protein Urine Glucose (UA) Urine Ketones Urine Blood Urine Nitrite Urine Bilirubin Urine Urobilinogen Ur Leukocyte Esterase Urine WBC (Auto) Urine RBC (Auto) Urine Casts (Auto) U Epithel Cells (Auto) Urine Bacteria (Auto) Urine Yeast (Auto) 02/27/20 02/27/20 02/27/20 02:47 03:00 06:30 WBC RBC Hgb Hct MCV MCH MCHC RDW Plt Count MPV Absolute Neuts (auto) Neutrophils % Lymphocytes % Monocytes % Eosinophils % Basophils % Nucleated RBC % D-Dimer Sodium Potassium Chloride Carbon Dioxide Anion Gap BUN Creatinine Est GFR (CKD-EPI)AfAm Est GFR (CKD-EPI)NonAf Random Glucose Lactic Acid 2.7 H* Calcium Ferritin Total Bilirubin AST ALT Alkaline Phosphatase Troponin I < 0.02 C-Reactive Protein Total Protein Albumin Urine Color Yellow Urine Appearance Clear Urine pH 6.0 Ur Specific [place] 1.016 Urine Protein 2+ H Urine Glucose (UA) 2+ H Urine Ketones Negative Urine Blood Trace Urine Nitrite Negative Urine Bilirubin Negative Urine Urobilinogen 0.2 Ur Leukocyte Esterase 1+ H Urine WBC (Auto) 64 Urine RBC (Auto) 5 Urine Casts (Auto) 4 U Epithel Cells (Auto) >36 Urine Bacteria (Auto) 205 Urine Yeast (Auto) Non seen 02/27/20 02/27/20 06:30 13:21 WBC RBC Hgb Hct MCV MCH MCHC RDW Plt Count MPV Absolute Neuts (auto) Neutrophils % Lymphocytes % Monocytes % Eosinophils % Basophils % Nucleated RBC % D-Dimer Sodium Potassium Chloride Carbon Dioxide Anion Gap BUN Creatinine Est GFR (CKD-EPI)AfAm Est GFR (CKD-EPI)NonAf Random Glucose Lactic Acid 2.8 H* 2.2 H* Calcium Ferritin Total Bilirubin AST ALT Alkaline Phosphatase Troponin I C-Reactive Protein Total Protein Albumin Urine Color Urine Appearance Urine pH Ur Specific [place] Urine Protein Urine Glucose (UA) Urine Ketones Urine Blood Urine Nitrite Urine Bilirubin Urine Urobilinogen Ur Leukocyte Esterase Urine WBC (Auto) Urine RBC (Auto) Urine Casts (Auto) U Epithel Cells (Auto) Urine Bacteria (Auto) Urine Yeast (Auto) HOSPITAL COURSE: Date of Admission:02/27/20 This is a 60 year old male with PMH of DM(L BKA), ESRD (Renal transplant 3Y ago), and HTN. He presented to the ER with complaints of a fever last night around 7 PM. According to the patient, oral temp recorded at home was 104. He states that he was in bed at the time, and felt feverish. After he checked his temperature, his daughter called EMS and he was brought to the [facility] ER. He endorses associated throat irritation for the past 24 hours, one episode of diarrhea around the same time, and polyuria with 3 episodes of clear urine yesterday. He denies any chills, confusion, SOB, chest pain, abdominal pain, constipation, or dysuria. He has a history of ESRD, was started on HD 5 years ago and underwent a L renal transplant at [facility] 3 years ago. Follows up at [facility] as well. Currently on Prednisone 5mg, Mycophenolate Mofetil, and Tacrolimus. Tacrolimus levels were found to be elevated last week and dose was reduced from 1mg BID to 1mg AM and 0.5mg PM. He also had a Left BKA 1 year ago. He lives with his daughter, and quit smoking 5 years ago. In the ER, he was found to have questionable Rt middle/lower lobe infiltrate, Lactic Acid 2.7, and was given Ceftriaxone/Azithro, 10mg Dexamethasone and 2L N/S. LA came down to 2.2 during his 3rd Liter of N/S Due to concern for sepsis of suspected urinary source in this renal transplant patient, pt was transferred to [facility] to continue management under his regular Nephrology care team. Dr. Duarte was the admitting physician. Date of Discharge: 02/27/20 Minutes to complete discharge: 39 Discharge Summary Problems reviewed: Yes Reason For Visit: URINARY TRACT INFECTION; PNEUMONIA Current Active Problems Pneumonia (Acute) UTI (urinary tract infection) (Acute) Condition: Improved - Instructions - Home Medications Comprehensive Discharge Medication List: Ambulatory Orders Aspirin [ASA -] 81 mg PO DAILY 01/10/15 Simvastatin [Zocor -] 20 mg PO HS 01/10/15 Tamsulosin HCl [Flomax -] 0.8 mg PO DAILY 01/10/15 Tiotropium [place] [Spiriva] 1 inh PO DAILY 01/10/15 Amlodipine Besylate [Norvasc -] 5 mg PO DAILY 01/19/16 Lisinopril 10 mg PO DAILY 01/19/16 Sucroferric Oxyhydroxide [Velphoro] 500 mg PO DAILY 01/19/16 Insulin (Levemir) [Levemir Vial] 20 units SQ HS 02/27/20 Mycophenolate Mofetil [Cellcept] 250 mg PO BID 02/27/20 Prednisone 5 mg PO DAILY 02/27/20 Tacrolimus 1 mg PO DAILY 02/27/20 Tacrolimus Anhydrous [Prograf] 0.5 mg PO HS 02/27/20 ATTENDING PHYSICIAN STATEMENT I saw and evaluated the patient. I reviewed the resident's note and discussed the case with the resident. I agree with the resident's findings and plan as documented. SUBJECTIVE: OBJECTIVE: ASSESSMENT AND PLAN:
[2020-02-27] MEDS ORDERED: ATORVASTATIN CA 10 MG TABLET (FP) PO SCH (22:00)
[2020-02-28] MEDS ORDERED: TAMSULOSIN HCL 0.4 MG CAP PO SCH (08:30)
[2020-02-28] MEDS ORDERED: ASPIRIN 81 MG CHEWABLE TABLETS PO SCH (10:00)
[2020-02-28] MEDS ORDERED: PANTOPRAZOLE 20 MG TABLET PO SCH (10:00)
--- NOTE | 2020-02-28 10:03 | EKG ---
Test Reason : Blood Pressure : / mmHG Vent. Rate : 092 BPM Atrial Rate : 092 BPM P-R Int : 184 ms QRS Dur : 088 ms QT Int : 344 ms P-R-T Axes : 059 049 126 degrees QTc Int : 425 ms NORMAL SINUS RHYTHM POSSIBLE LEFT ATRIAL ENLARGEMENT T WAVE ABNORMALITY, CONSIDER INFEROLATERAL ISCHEMIA ABNORMAL ECG WHEN COMPARED WITH ECG OF 19-FEB-2017 17:11, INVERTED T WAVES HAVE REPLACED NONSPECIFIC T WAVE ABNORMALITY IN INFERIOR LEADS Confirmed by Luis Glasgow ([id number]) on 02/28/2020 10:03:18 AM Referred By: Confirmed By:Luis Glasgow
== END 2020-02-27 17:00 | disposition short-term general hospital (02) | DRG 871 ==
LOC: JER 01:22 → JERBED 06:46
PROVIDERS: ADMIT Internal Medicine; ATTEND Internal Medicine
DX: A41.9 Sepsis, unspecified organism (principal); J18.9 Pneumonia, unspecified organism; N39.0 Urinary tract infection, site not specified; E87.2 Acidosis; T86.19 Other complication of kidney transplant; N17.9 Acute kidney failure, unspecified; Z89.511 Acquired absence of right leg below knee; I10 Essential (primary) hypertension; E11.9 Type 2 diabetes mellitus without complications; N20.0 Calculus of kidney; Y83.0 Surgical operation with transplant of whole organ as the cause of abnormal reaction of the patient, or of later complication, without mention of misadventure at the time of the procedure; Z79.4 Long term (current) use of insulin
CPT/HCPCS: 36415; 71045-TC-FY; 74176-TC; 80053; 81003; 82728; 83605; 84484; 85025; 85379; 86140; 87040; 87086; 93005; 93010; 99285-25; J0131; J1100; J1644; U0003

== ENCOUNTER 2023-11-23 00:14 | Inpatient (IN) | payer MEDICARE, OTHER ==
[2023-11-23] MEDS ORDERED: ALBUTEROL SO4 2.5/IPRATROPIUM 0.5 INH SOL 3 ML VIAL.NEB. NEB ONE (00:49)
[2023-11-23 00:53] VITALS: BMI 24.4
[2023-11-23] MEDS: ALBUTEROL SO4 2.5/IPRATROPIUM 0.5 INH SOL 3 ML VIAL.NEB. NEB ONE (00:58)
[2023-11-23] MEDS ORDERED: VANCOMYCIN 1 GRAM (PRE-DOCKED) 1,000 MG/250 ML BAG IVPB ONE (02:21)
[2023-11-23] MEDS ORDERED: PIPERACILLIN/TAZOB 3.375 GM 3.375 GM/50 ML BAG IVPB ONE (02:22)
[2023-11-23 02:27] LABS: BASO % 0.2 % (0-2.0); EOS % 0.2 % (0-4.5); HEMATOCRIT 31.8 % (35.4-49); HEMOGLOBIN 10.3 GM/dL (11.7-16.9); LYMPH % 9.8 % (8-40); MCHC 32.5 g/dl (32.0-35.9); MEAN CELL VOLUME 92.3 fl (80-96); MEAN PLT VOLUME 9.7 fl (7.5-11.1); MONO % 7.8 % (3.8-10.2); PLATELET COUNT 374 10^3/uL (134-434); RBC 3.45 M/mm3 (4.00-5.60); RDW 15.8 % (11.9-15.9); WHITE BLOOD COUNT 9.5 K/mm3 (4.0-10.0)
[2023-11-23 02:28] LABS: VENOUS BASE EXCESS -3.2 mmol/L (-2-2); VENOUS O2 SATURATION 75.8 % (70-80); VENOUS PCO2 33.1 mmHg (38-52); VENOUS PH 7.414 (7.310-7.410)
[2023-11-23] MEDS: PIPERACILLIN/TAZOB 3.375 GM 3.375 GM in DEXTROSE 5%-WATER - 50 ML IVPB ONE (02:32)
[2023-11-23] MEDS: VANCOMYCIN 1,000 MG in DEXTROSE 5%-WATER - 250 ML IVPB ONE (02:56)
[2023-11-23 02:58] LABS: POTASSIUM 4.9 mmol/L (3.5-5.1)
[2023-11-23 02:59] LABS: INR 1.28 (0.83-1.09); PROTHROMBIN TIME (PATIENT) 14.4 SEC (9.7-13.0)
[2023-11-23 03:00] LABS: CALCIUM 10.1 mg/dL (8.5-10.1)
[2023-11-23 03:01] LABS: ALBUMIN 2.9 g/dl (3.4-5.0); BLOOD UREA NITROGEN 38.8 mg/dL (7-18); MAGNESIUM 2.2 mg/dL (1.8-2.4)
[2023-11-23 03:01] LABS: ACTIVATED PTT 33.1 SECONDS (25.2-36.5)
[2023-11-23 03:04] LABS: CREATININE 1.7 mg/dL (0.55-1.3)
[2023-11-23 03:06] LABS: BILIRUBIN,TOTAL 0.5 mg/dL (0.2-1); TOT PROT 7.7 g/dl (6.4-8.2)
[2023-11-23 03:09] LABS: N-TERMINAL BNP 7617.6 pg/ml (5-125)
[2023-11-23] MEDS ORDERED: ACETAMINOPHEN INJECTION 100 ML IVPB ONE (05:22)
[2023-11-23] MEDS: ACETAMINOPHEN 1000 MG/100 ML BAG IVPB ONE (05:25)
[2023-11-23] MEDS ORDERED: KETOROLAC TROMETHAMINE 15 MG/ML VIAL ONE (09:33)
[2023-11-23] MEDS: KETOROLAC TROMETHAMINE 15 MG/ML VIAL IVPUSH ONE (09:38)
[2023-11-23] MEDS: MYCOPHENOLATE MOFETIL 250 MG CAPSULE PO SCH (12:55)
[2023-11-23] MEDS: TAMSULOSIN HCL 0.4 MG CAP PO SCH (12:57)
[2023-11-23] MEDS: FUROSEMIDE 40 MG/4 ML INJECTABLE VIAL IVPUSH SCH (15:30)
[2023-11-23] MEDS: PIPERACILLIN/TAZOB 2.25 GM 2.25 GM in DEXTROSE 5%-WATER - 50 ML IVPB SCH (17:01)
[2023-11-23] MEDS: ATORVASTATIN CA 10 MG TABLET (FP) PO SCH (21:10)
[2023-11-23] MEDS: TACROLIMUS 0.5 MG CAPSULE PO SCH (21:39)
[2023-11-24] MEDS: LISINOPRIL 10 MG TABLET PO SCH (09:35)
[2023-11-24] MEDS: amLODIPine BESYLATE 5 MG TABLET (FP) PO SCH (09:35)
[2023-11-24] MEDS: predniSONE 5 MG TABLET (UD) PO SCH (09:35)
[2023-11-24] MEDS: TACROLIMUS ANHYDROUS 1 MG CAPSULE PO SCH (09:35)
[2023-11-24 09:38] LABS: BASO % 0.6 % (0-2.0); EOS % 3.1 % (0-4.5); HEMATOCRIT 28.6 % (35.4-49); HEMOGLOBIN 9.5 GM/dL (11.7-16.9); LYMPH % 15.5 % (8-40); MCH 30.7 pg (25.7-33.7); MCHC 33.3 g/dl (32.0-35.9); MEAN CELL VOLUME 92.3 fl (80-96); MEAN PLT VOLUME 9.2 fl (7.5-11.1); MONO % 9.9 % (3.8-10.2); NEUT % 70.9 % (42.8-82.8); PLATELET COUNT 338 10^3/uL (134-434); RDW 15.4 % (11.9-15.9); WHITE BLOOD COUNT 8.9 K/mm3 (4.0-10.0)
[2023-11-24 09:49] LABS: POTASSIUM 4.5 mmol/L (3.5-5.1)
[2023-11-24 09:52] LABS: BLOOD UREA NITROGEN 30.4 mg/dL (7-18)
[2023-11-24 09:55] LABS: CREATININE 1.4 mg/dL (0.55-1.3)
[2023-11-24 09:57] LABS: BILIRUBIN,TOTAL 0.4 mg/dL (0.2-1); TOT PROT 6.3 g/dl (6.4-8.2)
[2023-11-24 10:32] LABS: ALBUMIN 2.3 g/dl (3.4-5.0)
[2023-11-24] MEDS: IRON SUCROSE INJECTION 200 MG in SODIUM CHLORIDE 100 ML IVPB ONE (14:03)
[2023-11-25 07:15] LABS: BASO % 0.8 % (0-2.0); EOS % 7.5 % (0-4.5); HEMATOCRIT 30.2 % (35.4-49); HEMOGLOBIN 9.9 GM/dL (11.7-16.9); LYMPH % 25.7 % (8-40); MCH 30.5 pg (25.7-33.7); MCHC 32.8 g/dl (32.0-35.9); MEAN CELL VOLUME 93.2 fl (80-96); MEAN PLT VOLUME 8.7 fl (7.5-11.1); MONO % 10.8 % (3.8-10.2); NEUT % 55.2 % (42.8-82.8); PLATELET COUNT 335 10^3/uL (134-434); RBC 3.24 M/mm3 (4.00-5.60); RDW 15.1 % (11.9-15.9); WHITE BLOOD COUNT 6.8 K/mm3 (4.0-10.0)
[2023-11-25 07:34] LABS: POTASSIUM 4.5 mmol/L (3.5-5.1)
[2023-11-25 07:43] LABS: ALBUMIN 2.3 g/dl (3.4-5.0); BLOOD UREA NITROGEN 24.9 mg/dL (7-18); CALCIUM 9.4 mg/dL (8.5-10.1)
[2023-11-25 07:46] LABS: CREATININE 1.2 mg/dL (0.55-1.3)
[2023-11-25 07:48] LABS: BILIRUBIN,TOTAL 0.3 mg/dL (0.2-1); TOT PROT 6.4 g/dl (6.4-8.2)
[2023-11-25] MEDS: INSULIN (LEVEMIR) 100 UNITS/ML UNITS SQ SCH (11:14)
[2023-11-25] MEDS: INSULIN ASPART SLIDING SCALE (NOVOLOG) 1 VIAL SQ SCH (11:39)
[2023-11-25 14:07] LABS: BF WBC & OTHER NUCLEATED CELLS 37 /mm3
[2023-11-25 14:41] LABS: BODY FLUID MESOTHELIAL 14 %; BODY FLUID MONOCYTE 70 %
[2023-11-26 08:23] LABS: BASO % 0.7 % (0-2.0); EOS % 9.2 % (0-4.5); HEMATOCRIT 29.6 % (35.4-49); HEMOGLOBIN 9.6 GM/dL (11.7-16.9); LYMPH % 26.1 % (8-40); MCH 30.2 pg (25.7-33.7); MCHC 32.6 g/dl (32.0-35.9); MEAN CELL VOLUME 92.7 fl (80-96); MEAN PLT VOLUME 8.5 fl (7.5-11.1); MONO % 6.8 % (3.8-10.2); NEUT % 57.2 % (42.8-82.8); PLATELET COUNT 393 10^3/uL (134-434); RBC 3.19 M/mm3 (4.00-5.60); RDW 14.8 % (11.9-15.9); WHITE BLOOD COUNT 7.9 K/mm3 (4.0-10.0)
[2023-11-26 08:25] LABS: POTASSIUM 4.5 mmol/L (3.5-5.1)
[2023-11-26 08:40] LABS: ALBUMIN 2.2 g/dl (3.4-5.0); CALCIUM 9.5 mg/dL (8.5-10.1)
[2023-11-26 08:44] LABS: BLOOD UREA NITROGEN 29.2 mg/dL (7-18)
[2023-11-26 08:46] LABS: CREATININE 1.3 mg/dL (0.55-1.3)
[2023-11-26 08:47] LABS: BILIRUBIN,TOTAL 0.4 mg/dL (0.2-1); TOT PROT 6.1 g/dl (6.4-8.2)
[2023-11-26] MEDS: amLODIPine BESYLATE 10 MG TABLET (FP) PO SCH (09:44)
[2023-11-26] MEDS: TORSEMIDE 20 MG TABLET (FP) PO SCH (09:45)
[2023-11-26] MEDS: IRON SUCROSE INJECTION 200 MG in SODIUM CHLORIDE 100 ML IVPB ONE (12:34)
[2023-11-26] MEDS: INSULIN (LEVEMIR) 100 UNITS/ML UNITS SQ SCH (21:55)
[2023-11-27] MEDS ORDERED: INSULIN (LEVEMIR) 100 UNITS/ML UNITS SQ SCH (07:01)
[2023-11-27 07:26] LABS: BASO % 1.2 % (0-2.0); EOS % 7.8 % (0-4.5); HEMATOCRIT 32.6 % (35.4-49); HEMOGLOBIN 10.6 GM/dL (11.7-16.9); LYMPH % 30.2 % (8-40); MCHC 32.7 g/dl (32.0-35.9); MEAN CELL VOLUME 91.7 fl (80-96); MEAN PLT VOLUME 8.2 fl (7.5-11.1); MONO % 7.8 % (3.8-10.2); PLATELET COUNT 417 10^3/uL (134-434); RBC 3.55 M/mm3 (4.00-5.60); WHITE BLOOD COUNT 7.8 K/mm3 (4.0-10.0)
[2023-11-27 07:48] LABS: POTASSIUM 4.6 mmol/L (3.5-5.1)
[2023-11-27 07:53] LABS: ALBUMIN 2.4 g/dl (3.4-5.0); CALCIUM 9.4 mg/dL (8.5-10.1)
[2023-11-27 07:56] LABS: CREATININE 1.3 mg/dL (0.55-1.3)
[2023-11-27 07:57] LABS: TOT PROT 6.7 g/dl (6.4-8.2)
[2023-11-27 07:58] LABS: BILIRUBIN,TOTAL 0.3 mg/dL (0.2-1)
[2023-11-27] MEDS: LISINOPRIL 20 MG TABLET PO SCH (09:43)
[2023-11-27] MEDS: MUPIROCIN 2% TOPICAL OINTMENT FOR DECOLONIZATION NS SCH (10:30)
[2023-11-27 14:36] VITALS: BP 153/64; PULSE 70; RESP 18; TEMP 98.8
[2023-11-27 15:09] LABS: BODY FLUID ALBUMIN 1.5 g/dL (Not Estab.)
[2023-11-27] MEDS ORDERED: CHLORHEXIDINE GLUCONATE 4% CLEANSER FOR DECOLONIZATION TP SCH (22:00)
== END 2023-11-27 18:21 | DRG 291 ==
LOC: JER 00:14 → JERBED 06:45 → J4W 11:52
PROVIDERS: ADMIT Family Medicine; ATTEND Family Medicine
PROC: 0W9930Z Drainage of Right Pleural Cavity with Drainage Device, Percutaneous Approach (ICD-10-PCS; principal; 2023-11-23)
PROC: 0WP9X0Z Removal of Drainage Device from Right Pleural Cavity, External Approach (ICD-10-PCS; 2023-11-26)
DX: I13.0 Hypertensive heart and chronic kidney disease with heart failure and stage 1 through stage 4 chronic kidney disease, or unspecified chronic kidney disease (principal); I50.33 Acute on chronic diastolic (congestive) heart failure; J96.01 Acute respiratory failure with hypoxia; J90 Pleural effusion, not elsewhere classified; Z94.0 Kidney transplant status; D84.9 Immunodeficiency, unspecified; E87.1 Hypo-osmolality and hyponatremia; N17.9 Acute kidney failure, unspecified; E11.22 Type 2 diabetes mellitus with diabetic chronic kidney disease; N18.9 Chronic kidney disease, unspecified; E11.51 Type 2 diabetes mellitus with diabetic peripheral angiopathy without gangrene; J44.9 Chronic obstructive pulmonary disease, unspecified; E78.5 Hyperlipidemia, unspecified; Z89.519 Acquired absence of unspecified leg below knee; D50.9 Iron deficiency anemia, unspecified
CPT/HCPCS: 0241U-QW; 36415; 71045-TC-FY; 71250-TC; 80053; 80180; 80197; 82042; 82150; 82272; 82607; 82728; 82803; 82945; 82962; 83540; 83550; 83605; 83615; 83735; 83880; 83986; 84157; 84484; 85025; 85610; 85730; 87040; 87070; 87075; 87081; 87205; 93005; 93010; 93306-TC; 99285-25; G0480; J0131; J1756; J7517